=== PATIENT | female | born 1990 | race Caucasian/White ===

== ENCOUNTER 2016-05-02 10:26 | Emergency (ER) | payer OTHER ==
[~2016-05-02] VITALS: Ht 165.1 cm; Wt 58.8 kg
[2016-05-02 10:30] VITALS: TEMP 36.9; Ht 165.1 cm; Wt 58.8 kg
[2016-05-02] MEDS ORDERED: SODIUM CHLORIDE 0.9% 1000ML 1,000 ML IV STA (11:19)
[2016-05-02] MEDS ORDERED: SODIUM CHLORIDE 0.9% 1000ML 1,000 ML IV ONE (11:19)
[2016-05-02 11:51] LABS: BASO % 0.4 %; BASO ABS # 0.02 K/uL (0-0.2); COMPLETE YES; HEMATOCRIT 37.6 % (37-47); IG% 0.2 %; LYMPH % 36.4 %; LYMPH ABS # 1.81 K/uL (1.2-3.4); MEAN CELL VOLUME 76.4 fL (80-100); MEAN PLATELET VOLUME 10.1 fL (7.4-10.4); PLATELET COUNT 256 K/uL (130-400); RED BLOOD COUNT 4.92 M/uL (4.2-5.4); WHITE BLOOD COUNT 4.97 K/uL (4.8-10.8)
[2016-05-02 12:12] LABS: URINE APPEARANCE CLEAR (CLEAR); URINE BILIRUBIN NEG (NEG); URINE COLOR YELLOW; URINE NITRITE NEG (NEG); URINE PH 5.5 (4.5-7.5); URINE SPECIFIC GRAVITY 1.028 (1.000-1.030); UROBILINOGEN NEG (NEG)
[2016-05-02 12:15] LABS: BUN/CREATININE RATIO 13.6 (10-20); CALCIUM 9.1 mg/dl (8.5-10.1); CREATININE 0.81 mg/dl (0.60-1.20); POTASSIUM 3.9 mmol/L (3.5-5.1)
[2016-05-02 12:18] LABS: MANUAL MICROSCOPIC REQUIRED? NO; REVIEW REQ? NO
--- NOTE | 2016-05-02 12:53 | DIAGNOSTIC IMAGING REPORT ---
Limited ultrasound LIMITED (US) CLINICAL HISTORY: eval for ectopic pelvic pain TECHNIQUE: Transabdominal as well as transvaginal probe evaluation COMPARISON STUDY: None FINDINGS: The uterus is midline. Maximum dimension 8.7 cm. Moderate endometrial thickening at 2 cm. No evidence for an intrauterine gestational sac. Right ovary measures 4.0 cm at maximum. Vascular flow is confirmed. Left ovary measures 4.5 cm including a 2.4 cm exophytic cyst. Vascular flow is confirmed. IMPRESSION: 1. Endometrial thickening. 2. No evidence for an intrauterine gestational sac. 3. Small left ovarian cyst. 4. Unfortunately, diagnostic considerations include an early nonvisualized intrauterine versus ectopic . Correlation with quantitative beta hCGs and EQUIPMENT SERVICE ASSOCIATE consultation is suggested Electronically signed by: Marko Monteiro M.D. 05/02/2016 12:52 PM Dictated Date/Time: 05/02/2016 12:48 PM
[2016-05-02 14:40] VITALS: BP 98/47; PULSE 78; O2SAT 100
--- NOTE | 2016-05-03 08:01 | DIAGNOSTIC IMAGING REPORT ---
Limited ultrasound LIMITED (US) CLINICAL HISTORY: eval for ectopic pelvic pain TECHNIQUE: Transabdominal as well as transvaginal probe evaluation COMPARISON STUDY: None FINDINGS: The uterus is midline. Maximum dimension 8.7 cm. Moderate endometrial thickening at 2 cm. No evidence for an intrauterine gestational sac. Right ovary measures 4.0 cm at maximum. Vascular flow is confirmed. Left ovary measures 4.5 cm including a 2.4 cm exophytic cyst. Vascular flow is confirmed. IMPRESSION: 1. Endometrial thickening. 2. No evidence for an intrauterine gestational sac. 3. Small left ovarian cyst. 4. Unfortunately, diagnostic considerations include an early nonvisualized intrauterine versus ectopic . Correlation with quantitative beta hCGs and FIRST PRESS OPERATOR consultation is suggested Electronically signed by: Marko Monteiro M.D. 05/02/2016 12:52 PM Dictated Date/Time: 05/02/2016 12:48 PM
--- NOTE | 2016-05-04 00:01 | EMERGENCY ROOM VISIT NOTE ---
History Report prepared by Blaise: Sindy Mark Under the Supervision of: Dr. Jose Mccabe M.D. First contact with patient: 11:11 Chief Complaint: PELVIC PAIN Stated Complaint: PELVIC PAIN History of Present Illness The patient is a 25 year old female who presents to the Emergency Room with complaints of persistent bilateral pelvic pain worse on the right side starting about 2-3 weeks ago. She has worsening pain with lying down. She reports increased vaginal discharge but denies any vaginal bleeding. She was evaluated by [facility] yesterday who referred her to the Emergency Room. She was diagnosed with a bacterial infection and she was placed on Flagyl. She also had a positive test and had a normal pelvic exam. She has not started her vitamins yet. Her last normal menstrual period was around March 28. She has been twice before and had 2 abortions. She denies any history of ectopic . She denies headache, fevers, chills, or any other complaints. She has not received a blood transfusion in the last 3 months. Source of History: patient, spouse/significant other Onset: about 2-3 weeks ago Position: pelvis (bilateral) Timing: other (persistent) Modifying Factors (Worsening): other (lying down) Associated Symptoms: No chills, No fevers, No headache Review of Systems See HPI for pertinent positives & negatives. A total of 10 systems reviewed and were otherwise negative. Past Medical & Surgical Medical Problems: (1) (2) Old medical records were reviewed. Nurse's notes were reviewed and I agree with. This is her third . 2 previous therapeutic abortions. No ectopic pregnancies Family History Patient reports no known family medical history. Social History Smoking Status: Never Smoker Drug Use: none Marital Status: single Occupation Status: employed Current/Historical Medications No Active Prescriptions or Reported Meds Allergies Coded Allergies: [place] (Unverified Allergy, Intermediate, HIVES, 05/02/16) Physical Exam Vital Signs Date Time Temp Pulse Resp B/P Pulse Ox O2 Delivery O2 Flow Rate FiO2 05/02/16 14:40 78 20 98/47 100 05/02/16 13:34 74 18 109/51 100 Room Air 05/02/16 11:44 60 18 102/64 100 Room Air 05/02/16 10:30 36.9 63 16 106/69 99 Room Air Physical Exam General: Non-ill appearing, young female, in no acute distress. HEENT: Normal cephalic atraumatic. Pupils are equal round and reactive to light. Sclerae are anicteric. Extraocular movements are intact. Oropharynx is pink with moist mucous membranes. No swelling of the mouth lips or tongue. Neck: Supple with a midline trachea. No meningeal signs or stiffness, no JVD or bruits. No Stridor. Chest: Clear to auscultation bilaterally. No wheezes or rhonchi. No increased work of breathing. Heart: regular rate and rhythm. Abdomen: Soft mildly diffusely tender in the lower abdomen bilaterally, nondistended without rebound guarding or rigidity. Extremities: No cyanosis clubbing or edema. No calf tenderness or assymetry Spine/Back. Non tender to palpation. No CVA tenderness Skin: Good turgor without rashes. Neurologic exam: Cranial nerves two through 12 are intact. Motor and sensation are intact and symmetrical throughout. Medical Decision & Procedures ER Provider Diagnostic Interpretation: US results as stated below per my review and radiologist interpretation: Limited ultrasound LIMITED (US) CLINICAL HISTORY: eval for ectopic pelvic pain TECHNIQUE: Transabdominal as well as transvaginal probe evaluation COMPARISON STUDY: None FINDINGS: The uterus is midline. Maximum dimension 8.7 cm. Moderate endometrial thickening at 2 cm. No evidence for an intrauterine gestational sac. Right ovary measures 4.0 cm at maximum. Vascular flow is confirmed. Left ovary measures 4.5 cm including a 2.4 cm exophytic cyst. Vascular flow is confirmed. IMPRESSION: 1. Endometrial thickening. 2. No evidence for an intrauterine gestational sac. 3. Small left ovarian cyst. 4. Unfortunately, diagnostic considerations include an early nonvisualized intrauterine versus ectopic . Correlation with quantitative beta hCGs and MEDICAL REIMBURSEMENT SPECIALIST consultation is suggested Electronically signed by: Marko Monteiro M.D. 05/02/2016 12:52 PM Dictated Date/Time: 05/02/2016 12:48 PM Laboratory Results 05/02/16 11:39 Red Blood Count 4.92, Mean Corpuscular Volume 76.4, Mean Corpuscular Hemoglobin 26.0, Mean Corpuscular Hemoglobin Concent 34.0, Mean Platelet Volume 10.1, Neutrophils (%) (Auto) 56.0, Lymphocytes (%) (Auto) 36.4, Monocytes (%) (Auto) 6.0, Eosinophils (%) (Auto) 1.0, Basophils (%) (Auto) 0.4, Neutrophils # (Auto) 2.78, Lymphocytes # (Auto) 1.81, Monocytes # (Auto) 0.30, Eosinophils # (Auto) 0.05, Basophils # (Auto) 0.02 05/02/16 11:39 Test 05/02/16 11:30 05/02/16 11:39 Urine Color YELLOW Urine Appearance CLEAR (CLEAR) Urine pH 5.5 (4.5-7.5) Urine Specific [place] 1.028 (1.000-1.030) Urine Protein NEG (NEG) Urine Glucose (UA) NEG (NEG) Urine Ketones NEG (NEG) Urine Occult Blood NEG (NEG) Urine Nitrite NEG (NEG) Urine Bilirubin NEG (NEG) Urine Urobilinogen NEG (NEG) Urine Leukocyte Esterase NEG (NEG) White Blood Count 4.97 K/uL (4.8-10.8) Red Blood Count 4.92 M/uL (4.2-5.4) Hemoglobin 12.8 g/dL (12.0-16.0) Hematocrit 37.6 % (37-47) Mean Corpuscular Volume 76.4 fL (80-100) Mean Corpuscular Hemoglobin 26.0 pg (25-34) Mean Corpuscular Hemoglobin Concent 34.0 g/dl (32-36) Platelet Count 256 K/uL (130-400) Mean Platelet Volume 10.1 fL (7.4-10.4) Neutrophils (%) (Auto) 56.0 % Lymphocytes (%) (Auto) 36.4 % Monocytes (%) (Auto) 6.0 % Eosinophils (%) (Auto) 1.0 % Basophils (%) (Auto) 0.4 % Neutrophils # (Auto) 2.78 K/uL (1.4-6.5) Lymphocytes # (Auto) 1.81 K/uL (1.2-3.4) Monocytes # (Auto) 0.30 K/uL (0.11-0.59) Eosinophils # (Auto) 0.05 K/uL (0-0.5) Basophils # (Auto) 0.02 K/uL (0-0.2) RDW Standard Deviation 38.5 fL (36.4-46.3) RDW Coefficient of Variation 13.7 % (11.5-14.5) Immature Granulocyte % (Auto) 0.2 % Immature Granulocyte # (Auto) 0.01 K/uL (0.00-0.02) Anion Gap 7.0 mmol/L (3-11) Est Creatinine Clear Calc Drug Dose 97.2 ml/min Estimated GFR () 118.6 Estimated GFR (Non- 102.4 BUN/Creatinine Ratio 13.6 (10-20) Calcium Level 9.1 mg/dl (8.5-10.1) Total Bilirubin 0.4 mg/dl (0.2-1) Direct Bilirubin 0.1 mg/dl (0-0.2) Aspartate Amino Transf (AST/SGOT) 12 U/L (15-37) Alanine Aminotransferase (ALT/SGPT) 16 U/L (12-78) Alkaline Phosphatase 72 U/L (45-117) Total Protein 7.5 gm/dl (6.4-8.2) Albumin 3.8 gm/dl (3.4-5.0) Lipase 96 U/L (73-393) Human Chorionic Gonadotropin, Quant 242 mIU/mL Laboratory studies as stated above per my review. Medications Administered Medications (Trade) Dose Ordered Sig/Salvador Route Start Time Stop Time Status Last Admin Dose Admin Sodium Chloride 1,000 ml @ 999 mls/hr Q1H1M STAT IV 05/02/16 11:19 05/02/16 12:19 DC 05/02/16 11:43 999 MLS/HR Sodium Chloride (Nss 1000ml) 1,000 ml @ 150 mls/hr Q6H40M ONCE IV 05/02/16 11:19 05/02/16 15:03 DC 05/02/16 12:52 150 MLS/HR ED Course 1111: Past medical records reviewed. The patient was evaluated in room C04, and a complete history and physical examination were performed. 1119: Sodium Chloride 1000 ml @ 150 mls/hr IV, Sodium Chloride 1000 ml @ 999 mls /hr IV 1400: Upon reevaluation, the patient is resting comfortably. I discussed the results and treatment plan with her. She verbalized agreement of the treatment plan. The patient was discharged home. Medical Decision Differential diagnosis includes but is not limited to ectopic , intrauterine , miscarriage, UTI, appendicitis, electrolyte or metabolic abnormalities. This patient comes in as described above. She was placed in room C4. She is here for treatment and evaluation of lower abdominal pain .she was found be . She has no vaginal bleeding or discharge. She has mild diffuse abdominal pain . on exam is minimally tender. Extensive workup was obtained. Her blood type was B+ therefore she would not need RhoGAM. Her hCG is only 242 and the ultrasound does not show any IUP or other abnormality. At this poin,t there is 1 of 3 scenarios: either she has an early intrauterine , an early ectopic or an early miscarriage. It is too early to tell given the Quant of only 242. I did discuss this with the on-call musical string maker Dr. Martinez. The patient is given a follow-up 2 days in the clinic. I case management team has called the [facility] physician group and they will see her on Saturday to recheck her quantitative hCG. She was given ectopic precautions and told to return if increasing pain, worsening of symptoms, vaginal bleeding, any problems concerns. She is happy the plan and discharged home. Impression Primary Impression: Lower abdominal pain Additional Impression: Scribe Attestation The scribe's documentation has been prepared under my direction and personally reviewed by me in its entirety. I confirm that the note above accurately reflects all work, treatment, procedures, and medical decision making performed by me. Departure Information Dispostion Home / Self-Care Prescriptions No Active Prescriptions or Reported Meds Referrals No Doctor, Assigned (PCP) Forms HOME CARE DOCUMENTATION FORM, IMPORTANT VISIT INFORMATION, WORK / SCHOOL INSTRUCTIONS Patient Instructions My [facility] Additional Instructions Rest. Take a vitamin Drink plenty of fluids Return if: worsening of symptoms, fever, increasing pain, vaginal bleeding, any new problems or concerns Follow-up in the MEDICAL REIMBURSEMENT SPECIALIST at [facility] on Saturday. The case management team will help make appointment for him Problem Qualifiers
== END 2016-05-02 14:40 | disposition home or self-care (01) ==
LOC: C.EDB 10:27 → C.EDC 14:40
DX: R10.30 Lower abdominal pain, unspecified (principal); N83.202 Unspecified ovarian cyst, left side; Z32.01 Encounter for pregnancy test, result positive; Z91.018 Allergy to other foods

== ENCOUNTER → 2016-05-04 | Outpatient (CLI) | payer OTHER | END | disposition home or self-care (01) | LOC: C.LAB 10:13 | PROVIDERS: ATTEND Obstetrics & Gynecology | DX: O20.0 Threatened abortion (principal) ==

== ENCOUNTER 2016-05-27 12:37 | Emergency (ER) | payer OTHER ==
[~2016-05-27] VITALS: Ht 165.1 cm; Wt 55.3 kg
[2016-05-27 12:44] VITALS: TEMP 36.9; Ht 165.1 cm; Wt 55.3 kg
[2016-05-27] MEDS ORDERED: SODIUM CHLORIDE 0.9% 1000ML 1,000 ML IV STA (13:14)
[2016-05-27 14:14] VITALS: BP 118/58; PULSE 61; O2SAT 98
--- NOTE | 2016-05-27 15:14 | EMERGENCY ROOM VISIT NOTE ---
History First contact with patient: 13:00 Chief Complaint: SYNCOPE Stated Complaint: PASSED OUT Nursing Triage Summary: Patient states "I was at [facility] and began feeling weak, dizzy and lighteaded so I went to lie down in the car. On the way I must have passed out. I must have fallen face first because of the cuts on my face and I woke up face down. I feel fine now." Patient denies N/V/D or cold symptoms. Patient is 8 weeks . Patient has abrasion to left forehead and left lip. History of Present Illness The patient is a 25 year old female who presents to the Emergency Room after passing out at [facility] The patient reports that while she was standing in the store, she became lightheaded and nauseated. When symptoms persisted, she told her boyfriend that she was going to walk to the car to lie down. When she got to the exit, she reports that the sliding doors did not open. She then leaned up against the wall. After the doors opened, and she tried to walk outside, she reports passing out. Her boyfriend then helped her to the car, and they then came to the emergency department for evaluation. Patient reports that she is currently 8 weeks . She has been having problems with nausea. She has not been eating well. She does not feel that she is dehydrated. She denies history of diabetes, thyroid disease or other significant health problems. During this episode, the patient denied any palpitations, chest pain or shortness of breath. She denies any other recent illnesses. She does report hitting her head and lower lip. She admits to mild dental pain. She denies any neck or back pain, or other significant injuries from this fall. She currently reports "feeling normal" at this time, and rates her overall discomfort a 2 out of 10. Review of Systems HEENT: Denies visual problems, hearing loss, tinnitus. Denies difficulty swallowing or oral lesions. PULMONARY: Denies cough, shortness of breath, sputum production or hemoptysis. CARDIOVASCULAR: Denies chest pain, palpitations, dyspnea on exertion, orthopnea or peripheral edema. GASTROINTESTINAL: Denies diarrhea, constipation, nausea, vomiting, or abdominal pain. GENITOURINARY: Denies dysuria, frequency, urgency or nocturia. NEUROLOGIC: Denies history of epilepsy, CVA, TIA or chronic headaches. MUSCULOSKELETAL: Denies history of joint tenderness/swelling. SKIN: Denies rashes or lesions. PSYCHIATRIC: Denies history of depression or mental illness. ENDOCRINE: Denies history of diabetes thyroid disorders. Past Medical/Surgical History Medical Problems: (1) (2) Family History FH: diabetes mellitus FH: hypertension Social History Smoking Status: Never Smoker Alcohol Use: none Drug Use: none Marital Status: single Housing Status: lives with significant other Occupation Status: unemployed Current/Historical Medications No Active Prescriptions or Reported Meds Allergies Coded Allergies: [place] (Verified Allergy, Intermediate, HIVES, 05/27/16) Physical Exam Vital Signs Date Time Temp Pulse Resp B/P Pulse Ox O2 Delivery O2 Flow Rate FiO2 05/27/16 14:14 61 18 118/58 98 05/27/16 13:56 61 118/58 98 Room Air 66 117/62 60 116/64 05/27/16 12:44 36.9 69 18 100/68 99 Room Air Physical Exam CONSTITUTIONAL: Healthy and well nourished. Alert and oriented X 3 with positive affect. Patient is not appear in any acute distress. HEENT: Examination shows a superficial abrasion to the left lateral forehead and left lower lip. Pupils equal, round and reactive. Ears and nares are clear. No nystagmus. No epistaxis, subconjunctival hemorrhage, hemotympanum, raccoon's eyes or Saxena sign. OROPHARYNX: No inner lip laceration or other dental trauma. No tonsillar hypertrophy or exudates. Mucous membranes are dry. NECK: Full active range of motion without discomfort. RESPIRATORY: Clear to auscultation bilaterally with no wheezing, crackles, rhonchi or stridor. CARDIOVASCULAR: Bradycardic with no murmurs, rubs or gallops. GASTROINTESTINAL: Bowel sounds present in all quadrants. Soft and nontender to palpation. Negative CVA tenderness. MUSCULOSKELETAL: Full range of motion of all joints without discomfort. INTEGUMENTARY: No rash or other significant dermatologic conditions noted. HEMATOLOGIC: No ecchymosis or petechiae noted. NEUROLOGIC: No focal neurologic deficits noted. Medical Decision & Procedures ER Provider Diagnostic Interpretation: My interpretation of an ECG shows a sinus bradycardia of [address] elevation or other conduction abnormalities. No prior ECGs are available for comparison. ED Course Patient history and physical exam were performed. Nurse's notes were reviewed. Vital signs were reviewed, showing a blood pressure 100/68. The patient is not tachycardic, and O2 saturation is 99% on room air. She is also afebrile. When an ECG was performed, her heart rate was 53 bpm, otherwise was normal. Orthostatics were performed and were normal. At this point, I suggested performing additional workup to rule out other electrolyte abnormalities. Because she is currently 8 weeks , and risk of exposure from radiation from a chest x-ray or head CT, I elected to defer this workup. The patient initially agreed to having her labs checked with IV hydration. The patient then told the nurse that she believes that her symptoms are from not eating well. She reports being extremely hungry, and wants to leave. I did explain to the patient that surgery this could be causing her symptoms, however if she has other potential etiologies for her syncope, these will not be thoroughly evaluated if she leaves. The patient voiced understanding, and reported that she would return with any persistent or worsening symptoms. I did have the patient sign an AMA form after she discussed the risks of refusing further workup. She was instructed to eat regular small meals, and remain well- hydrated. I did encourage her to follow-up with her PCP or EQUIPMENT SERVICE LEAD within the next 2-3 days for reevaluation. The patient was happy with plan of care, and denied any significant symptoms at the time of discharge. Medical Decision As indicated in the previous section, the patient is refusing further laboratory workup. Her ECG is unremarkable. She is not orthostatic. She clinically appears dehydrated. Other possibilities considered included anemia, electrolyte abnormality, hyponatremia, intracranial etiology, acute cardiopulmonary etiology, infection and other acute etiologies that could have been determine based on a more thorough workup. Impression Primary Impression: Syncope Additional Impression: Departure Information Prescriptions No Active Prescriptions or Reported Meds Referrals No Doctor, Assigned (PCP) Patient Instructions My [facility] Problem Qualifiers Primary Impression: Syncope Syncope type: unspecified Qualified Codes: R55 - Syncope and collapse Additional Impression: Weeks of gestation: less than 8 weeks Qualified Codes: Z3A.01 - Less than 8 weeks gestation of
== END 2016-05-27 14:14 | disposition left against medical advice (07) ==
LOC: C.EDB 12:40 → C.EDC 14:14
DX: O26.91 Pregnancy related conditions, unspecified, first trimester (principal); Z3A.01 Less than 8 weeks gestation of pregnancy; R55 Syncope and collapse; Z91.018 Allergy to other foods; Z83.3 Family history of diabetes mellitus; Z82.49 Family history of ischemic heart disease and other diseases of the circulatory system